=== PATIENT | male | born 1995 | race Caucasian/White ===

== ENCOUNTER 2021-11-23 16:39 | Emergency (ER) | payer BC, OTHER ==
[2021-11-23 16:58] VITALS: BP 131/69; PULSE 96; RESP 18; TEMP 99.4; BMI 20.5
== END 2021-11-23 18:30 | disposition home or self-care (01) ==
LOC: FER 16:39
DX: N53.19 Other ejaculatory dysfunction (principal)
CPT/HCPCS: 36415; 87491; 87591; 99283-25